=== PATIENT | male | born 1995 | race Caucasian/White ===

== ENCOUNTER 2019-06-11 15:54 | Emergency (ER) | payer OTHER ==
[~2019-06-11] VITALS: Ht 190.5 cm; Wt 70.5 kg
[~2019-06-11 15:54] MED LIST: CEPHALEXIN500 M1 PO; CYMBALTA 30MG30 MG PO; NORCO 325 MG-51 TAB PO
[2019-06-11 16:06] VITALS: BP 139/72; TEMP 97.8
[2019-06-11 19:57] VITALS: PULSE 81
== END 2019-06-11 19:59 | disposition home or self-care (01) ==
LOC: COL.ER 15:54
DX: S01.411A Laceration without foreign body of right cheek and temporomandibular area, initial encounter (principal); F17.210 Nicotine dependence, cigarettes, uncomplicated; Z23 Encounter for immunization; W22.8XXA Striking against or struck by other objects, initial encounter; W11.XXXA Fall on and from ladder, initial encounter